=== PATIENT | male | born 1990 | race Caucasian/White ===

== ENCOUNTER 2016-11-18 12:00 | Emergency (ER) | payer SELFPAY ==
[2016-11-18 12:16] VITALS: BP 119/56
[2016-11-18] MEDS ORDERED: Ketorolac 60 MG/2 ML SDV IM ONE (12:38)
--- NOTE | 2016-11-18 12:42 | EDM.PDOC ---
ED HPI GENERAL MEDICAL PROBLEM - General Chief Complaint: General Stated Complaint: UNK Time Seen by Provider: 11/18/16 12:07 - History of Present Illness INITIAL COMMENTS - FREE TEXT/NARRATIVE: HISTORY AND PHYSICAL: History of present illness: The patient is a 26-year-old male who presents with complaints of bilateral occipital headache that has been on and off for the last few weeks but seems to be recurrent and he is concerned. Of note the patient went to [facility] in [place] into the ER yesterday and was seen there for evaluation of shortness of breath hyperventilation and cramping with nonspecific scattered paresthesias of his body. He states he was seen there and evaluated; he had labs chest x-ray and EKG and was discharged being told it was likely stress related. 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 And says that he has trouble sitting still and he seems to be I feel that time and she is not sure how that relates to today's symptoms. Currently in the ER here he is not short of breath or having chest pain and has no numbness tingling or weakness in any part of his body. He has no neck or back pain. He has not had any recent trauma. He has no neck discomfort or back pain. Patient took 800 mg of ibuprofen at 6 AM, almost 6 hours ago, and states it did not help; he is currently drinking orange juice in the ER on my evaluation Review of systems: As per history of present illness and below otherwise all systems reviewed and negative. Past medical history: As per history of present illness and as reviewed below otherwise noncontributory. Surgical history: As per history of present illness and as reviewed below otherwise noncontributory. Social history: No reported history of drug or alcohol abuse. Family history: As per history of present illness and as reviewed below otherwise noncontributory. Physical exam: General: Well-developed well-nourished thin man who is nontoxic and moving easily in the ED and speaking clearly. He is drinking orange juice on my evaluation HEENT: Atraumatic, normocephalic, pupils reactive, negative for conjunctival pallor or scleral icterus, mucous membranes moist, throat clear, neck supple, nontender, trachea midline. Her are no midline step-offs his defects of the cervical spine but there is some trapezius and paraspinal tenderness on palpation bilaterally. There is no scalp tenderness swelling or defects Lungs: Clear to auscultation, breath sounds equal bilaterally, chest nontender. Heart: S1S2, regular, negative for clicks, rubs, or JVD. Abdomen: Soft, nondistended, nontender. NABS Pelvis: Deferred Genitourinary: Deferred. Rectal: Deferred. Extremities: Atraumatic, negative for cords or calf pain. Neurovascular unremarkable. Neuro: Awake, alert, oriented. Cranial nerves II through XII unremarkable. Cerebellum unremarkable. Motor and sensory unremarkable throughout. Exam nonfocal. Skin: No evidence of any rashes lesions , normal turgor Diagnostics: CT scan of the head Therapeutics: Toradol I discussed with the patient that it is difficult for me to evaluate the symptoms that he had yesterday as they're currently not occurring. I told him that I would be happy to evaluate him for his headache and help address that pain associated with that I gave him referrals to the clinic. Impression: Headache Definitive disposition and diagnosis as appropriate pending reevaluation and review of above. Headache Pain Score (Numeric/FACES): 8 - Related Data Allergies Allergy/AdvReac Type Severity Reaction Status Date / Time No Known Allergies Allergy Verified 11/18/16 12:16 Home Meds: Home Meds . [No Known Home Meds] 11/18/16 [History] Past Medical History - Past Health History Medical/Surgical History: Denies Medical/Surgical History Social & Family History - Family History Family Medical History: Noncontributory - Tobacco Use Smoking Status *Q: Current Every Day Smoker Years of Tobacco use: 9 Packs/Tins Daily: 1 - Caffeine Use Caffeine Use: Reports: None - Recreational Drug Use Recreational Drug Use: Yes Drug Use in Last 12 Months: Yes Recreational Drug Type: Reports: Methamphetamine ED ROS GENERAL - Review of Systems Review Of Systems: ROS reveals no pertinent complaints other than HPI. ED EXAM, GENERAL - Physical Exam Exam: See Below (See dictation) Course - Vital Signs Last Recorded V/S: Last Vital Signs Temp 36.4 C 11/18/16 12:11 Pulse 93 11/18/16 12:11 Resp 18 11/18/16 12:11 BP 119/56 L 11/18/16 12:11 Pulse Ox 96 11/18/16 12:11 - Orders/Labs/Meds Meds: Medications Discontinued Medications Generic Name Dose Route Start Last Admin Trade Name Jose Juan PRN Reason Stop Dose Admin Ketorolac Tromethamine 60 mg 11/18/16 12:38 Toradol IM 11/18/16 12:39 ONETIME ONE Departure - Departure Time of Disposition: 13:06 Disposition: Home, Self-Care 01 Condition: good Clinical Impression: Headache Qualifiers: Headache type: unspecified Headache chronicity pattern: episodic headache Intractability: not intractable Qualified Code(s): R51 - Headache - Discharge Information Forms: ED Department Discharge Additional Instructions: The following information is given to patients seen in the emergency department who are being discharged to home. This information is to outline your options for follow-up care. We provide all patients seen in our emergency department with a follow-up referral. The need for follow-up, as well as the timing and circumstances, are variable depending upon the specifics of your emergency department visit. If you don't have a primary care physician on staff, we will provide you with a referral. We always advise you to contact your personal physician following an emergency department visit to inform them of the circumstance of the visit and for follow-up with them and/or the need for any referrals to a consulting specialist. The emergency department will also refer you to a specialist when appropriate. This referral assures that you have the opportunity for followup care with a specialist. All of these measure are taken in an effort to provide you with optimal care, which includes your followup. Under all circumstances we always encourage you to contact your private physician who remains a resource for coordinating your care. When calling for followup care, please make the office aware that this follow-up is from your recent emergency room visit. If for any reason you are refused follow-up, please contact the [facility] emergency department at and ask to speak to the emergency department charge nurse. [facility] Primary care- Internal Medicine and Family [facility] [address] [place] [id number] [facility] Specialty care-Neurology Professional Building [address] [place] [address], [address] [place] [address] Please call and followup with one of our providers in the clinic using resources given to above. If your headaches continued to persist he can follow up with her neurologist Dr. Wilkes as well. Please continue to use over-the- counter ibuprofen or Tylenol and add the tramadol prescribed to. Use heat on areas of neck or causing discomfort and try to reduce media time on computers tablets cell phones. Return to ER as needed and as discussed. Try to reduce your caffeine intake and reduce stressors
--- NOTE | 2016-11-18 13:03 | CT ---
EXAMINATION: Non contrast CT head. Coronal and sagittal reformats. HISTORY: Pain FINDINGS: No evidence of intra or extra axial hemorrhage, mass, midline shift, hydrocephalus or edema. No hypoattenuation changes in the major vascular territories to suggest acute infarct. No abnormal intracranial calcifications are detected. No evidence of substantial vascular calcifica tions. Paranasal sinuses and mastoid air cells are well aerated without substantial findings. The orbits a nd globes are symmetric. Pituitary fossa appears unremarkable. Calvarium is intact. No evidence of skull fracture. IMPRESSION: No acute intracranial findings.
== END 2016-11-18 13:51 | disposition home or self-care (01) ==
LOC: MW.ED 12:00
DX: R51 Headache (principal); F17.210 Nicotine dependence, cigarettes, uncomplicated
CPT/HCPCS: 70450; 70450-26; 99283